=== PATIENT | male | born 1985 | race Caucasian/White ===

== ENCOUNTER → 2020-09-04 | Outpatient (CLI) | payer OTHER ==
[~2020-09-04] MED LIST: OMEP40CA42 PO
== END | disposition home or self-care (01) ==
LOC: STAR 15:49
PROVIDERS: ATTEND Otolaryngology
DX: Z20.822 Contact with and (suspected) exposure to COVID-19 (principal); G47.33 Obstructive sleep apnea (adult) (pediatric)
CPT/HCPCS: 87635

== ENCOUNTER 2020-09-08 05:52 | Observation (INO) | payer OTHER ==
[~2020-09-08] VITALS: Ht 175.3 cm; Wt 72.6 kg
[2020-09-08] MEDS ORDERED: EPINEPHRINE 1 MG/ML, 1ML ONE (06:59)
[2020-09-08] MEDS ORDERED: LIDOCAINE/PF 1%, 30ML ONE (06:59)
[2020-09-08] MEDS ORDERED: LIDOCAINE JELLY 2%, 30GM ONE (06:59)
[2020-09-08] MEDS ORDERED: OXYMETAZOLINE NASAL SPRAY 0.05%,30ML ONE (06:59)
[2020-09-08] MEDS ORDERED: LACTATED RINGERS 1,000 ML IV SCH (07:00)
[2020-09-08] MEDS ORDERED: CHLORHEXIDINE 15 ML UDC MM ONE (07:00)
[2020-09-08] MEDS ORDERED: LIDOCAINE-MPF 1%, 2ML INFIL ONE (07:00)
[2020-09-08] MEDS ORDERED: MIDAZOLAM 1 MG/ML, 2ML ONE (07:18)
[2020-09-08] MEDS ORDERED: FENTANYL PF 250 MCG/5ML ONE (07:19)
[2020-09-08] MEDS ORDERED: ACET325T14 PO (07:21)
[2020-09-08] MEDS ORDERED: CLINDAMYCIN 150 MG/ML, 6ML ONE (07:33)
[2020-09-08] MEDS ORDERED: DEXAMETHASONE 4 MG/ML, 1ML ONE (07:44)
[2020-09-08] MEDS ORDERED: NEOSTIGMINE 1 MG/ML, 10ML ONE (07:44)
[2020-09-08] MEDS ORDERED: PROPOFOL 10 MG/ML, 20ML ONE (07:44)
[2020-09-08] MEDS ORDERED: ONDANSETRON 2MG/ML, 2ML ONE (07:44)
[2020-09-08] MEDS ORDERED: ROCURONIUM 10MG/ML,5ML ONE (07:44)
[2020-09-08] MEDS ORDERED: GLYCOPYRROLATE 0.2MG/1ML, 5ML ONE (07:44)
[2020-09-08] MEDS ORDERED: CEFAZOLIN 1,000 MG ONE (07:44)
[2020-09-08] MEDS ORDERED: SUCCINYLCHOLINE 20 MG/ML, 10ML ONE (07:44)
[2020-09-08] MEDS ORDERED: MEPERIDINE/PF 25MG/0.5ML IVPush PRN (08:00)
[2020-09-08] MEDS ORDERED: PROMETHAZINE 25 MG/ML, 1ML IVPush PRN (08:00)
[2020-09-08] MEDS ORDERED: ACETAMINOPHEN 325 MG TABLET PO PRN ×2 (08:00→11:00)
[2020-09-08] MEDS ORDERED: LORazepam 2 MG/ML, 1ML IVPush PRN (08:00)
[2020-09-08] MEDS ORDERED: HYDROmorphone 1 MG/ML, 1ML INJ IVPush PRN (08:00)
[2020-09-08] MEDS ORDERED: OXYcodone 5 MG/5 ML ORAL.SOL UDC PO PRN (08:00)
[2020-09-08] MEDS ORDERED: PROMETHAZINE 25 MG SUPP PR PRN (08:00)
[2020-09-08] MEDS ORDERED: ONDANSETRON 2MG/ML, 2ML IVPush PRN (08:00)
[2020-09-08] MEDS ORDERED: SILVER NITRATE STICK TP ONE (08:19)
[2020-09-08] MEDS ORDERED: FENTANYL PF 100 MCG/2ML ONE (09:00)
[2020-09-08] MEDS: FENTANYL PF 100 MCG/2ML IV PRN ×4 (09:15→09:40)
[2020-09-08] MEDS ORDERED: ACETAMINOPHEN 650 MG/20.3 ML UDC ONE (09:35)
[2020-09-08] MEDS ORDERED: OXYcodone 5 MG/5 ML ORAL.SOL UDC ONE ×2 (09:35→09:41)
[2020-09-08] MEDS ORDERED: OXYC5TAB2 PO (09:36)
[2020-09-08] MEDS ORDERED: SENN-190 PO (09:36)
[2020-09-08] MEDS ORDERED: IBUP-1222 PO (09:36)
[2020-09-08] MEDS ORDERED: ACETAMINOPHEN 325 MG TABLET PO SCH (11:00)
[2020-09-08] MEDS ORDERED: ONDANSETRON 2MG/ML, 2ML IV PRN (11:00)
[2020-09-08] MEDS ORDERED: ACETAMINOPHEN 650 MG SUPP PR PRN (11:00)
[2020-09-08] MEDS: IBUPROFEN 600 MG TABLET PO SCH (12:16)
[2020-09-08] MEDS: OXYcodone 5 MG/5 ML ORAL.SOL UDC PO PRN ×3 (13:23→21:34)
[2020-09-08 13:28] VITALS: BP 104/64
[2020-09-08] MEDS ORDERED: IBUPROFEN 600 MG TABLET PO SCH (17:00)
[2020-09-08] MEDS ORDERED: SENNOSIDES 8.6 MG TABLET ONE (17:32)
[2020-09-08] MEDS: SENNOSIDES 8.6 MG TABLET PO SCH (17:34)
[2020-09-08] MEDS: ACETAMINOPHEN 325 MG TABLET PO SCH (18:04)
[2020-09-08] MEDS: SODIUM CHLORIDE FLUSH 10ML SYR IVF SCH (19:23)
[2020-09-08] MEDS: LACTATED RINGERS 1,000 ML IV SCH (19:24)
[2020-09-08 20:01] VITALS: BP 102/68
[2020-09-08 23:58] VITALS: BP 108/65
[2020-09-09] MEDS: IBUPROFEN 600 MG TABLET PO SCH (00:20)
[2020-09-09] MEDS: OXYcodone 5 MG/5 ML ORAL.SOL UDC PO PRN ×3 (01:32→09:36)
[2020-09-09 04:18] VITALS: BP 110/69
[2020-09-09] MEDS: ACETAMINOPHEN 325 MG TABLET PO SCH (05:39)
[2020-09-09] MEDS ORDERED: OMEPRAZOLE 20 MG CAPSULE.DR PO SCH (06:00)
[2020-09-09 07:15] VITALS: BP 108/67
[2020-09-09] MEDS: LACTATED RINGERS 1,000 ML IV SCH (08:40)
[2020-09-09] MEDS: SENNOSIDES 8.6 MG TABLET PO SCH (08:41)
[2020-09-09] MEDS: SODIUM CHLORIDE FLUSH 10ML SYR IVF SCH (08:41)
== END 2020-09-09 10:00 | disposition home or self-care (01) ==
LOC: OUT 05:52 → 4NE 10:20 → OUT 21:47 → 4NE 21:48 → DCLOUNGE 09-09 09:57
PROVIDERS: ADMIT Otolaryngology; ATTEND Otolaryngology
DX: G47.33 Obstructive sleep apnea (adult) (pediatric) (principal); J35.01 Chronic tonsillitis; K21.9 Gastro-esophageal reflux disease without esophagitis
CPT/HCPCS: 42870; 42950; 88304; 96360; 96361; G0378; J0171; J1100; J2250; J2405; J2704; J2710; J3010; J3490; J7120; S0077; J0690; J0330